=== PATIENT | male | born 2005 | race Caucasian/White ===

== ENCOUNTER 2023-04-09 08:14 | Emergency (ER) | payer OTHER, MEDICAID ==
[~2023-04-09] VITALS: Ht 180.3 cm; Wt 87.3 kg
[2023-04-09 08:27] VITALS: TEMP 97.9
[2023-04-09 08:32] VITALS: BP 128/70; PULSE 74; RESP 18
[2023-04-09] MEDS ORDERED: IBUPROFEN 600 MG TABLET PO ONE (09:00)
[2023-04-09] MEDS ORDERED: IBUP-1492 PO (10:39)
== END 2023-04-09 10:46 | disposition home or self-care (01) ==
LOC: EMS 08:14
DX: S40.012A Contusion of left shoulder, initial encounter (principal); S80.01XA Contusion of right knee, initial encounter; Z90.49 Acquired absence of other specified parts of digestive tract; V89.2XXA Person injured in unspecified motor-vehicle accident, traffic, initial encounter; Y93.89 Activity, other specified; Y92.89 Other specified places as the place of occurrence of the external cause; Y99.8 Other external cause status
CPT/HCPCS: 99284; 73030-TC; 73562-TC; Z7502; Z7610